=== PATIENT | male | born 1945 | race Caucasian/White ===

== ENCOUNTER 2019-04-03 09:29 | Inpatient (IN) | payer OTHER, MEDICAID ==
[~2019-04-03] VITALS: Ht 175.3 cm; Wt 90.0 kg
[2019-04-03 11:06] LABS: Alanine Aminotransferase 13 U/L (16-61); Albumin 3.3 g/dL (3.4-5.0); Anion Gap 8 (5-15); Blood Alcohol < 3.0 mg/dL (0-5); Blood Urea Nitrogen 27 mg/dL (7-18); Calcium 8.6 mg/dL (8.5-10.1); Carbon Dioxide 21 mmol/L (21-32); Chloride 111 mmol/L (98-107); Glucose 118 mg/dL (74-106); Magnesium 1.7 mg/dL (1.6-2.6); Potassium 4.1 mmol/L (3.5-5.1); Sodium 140 mmol/L (136-145)
[2019-04-03 11:08] LABS: Lactic Acid w/Reflex 4.1 mmol/L (0.4-2.0)
[2019-04-03 11:11] LABS: Alkaline Phosphatase 59 U/L (45-117); Aspartate Aminotransferase 16 U/L (15-37); BUN/Creatinine Ratio 13.9; Bilirubin, Total 2.1 mg/dL (0.2-1.0); GFR African American 44 mL/min; GFR Non-African American 36 mL/min
[2019-04-03 11:13] LABS: Hemoglobin 9.9 g/dL (13.5-17.5); Mean Corpuscular Hgb Conc. 35.6 g/dL (32.0-36.0); Platelet Count (auto) 95 10^3/uL (140-450); White Blood Cell 5.2 10^3/uL (4.4-10.8)
[2019-04-03 11:15] LABS: Hematocrit 27.7 % (41.0-53.0); Mean Corpuscular Hemoglobin 35.2 pg (28.0-32.0); Red Cell Distribution Width 19.4 % (11.8-14.3)
[2019-04-03 11:25] LABS: Basophils % (manual) 0 (0.0-2.0); Blast Cells 0; Eosinophils % (manual) 0 (0-7); Metamyelocytes % 0; Myelocytes % 0; Promyelocytes % 0; Reactive Lymphocytes 0
[2019-04-03 11:48] LABS: INR 1.07 (0.9-1.15); Partial Thromboplastin Time 24.8 sec (23.64-32.05)
[2019-04-03 12:27] LABS: Band Neutrophils % (manual) 15; Lymphocytes % (manual) 3 (10.0-50.0); Monocytes % (manual) 2 (0-12)
[2019-04-03] MEDS ORDERED: DEXTROSE (50%) 50ML SYRG IV PRN (12:45)
[2019-04-03] MEDS ORDERED: NITROGLYCERIN 0.4 MG SL TAB SL PRN (12:45)
[2019-04-03] MEDS ORDERED: MORPHINE SULF INJ 2 MG/ML SYRINGE 1ML IV PRN (12:45)
[2019-04-03] MEDS ORDERED: SODIUM CHLORIDE 0.9% 2,000 ML IV ONE (12:45)
[2019-04-03] MEDS ORDERED: LEVOFLOXACIN 500MG 100 ML IV ONE (12:45)
[2019-04-03 13:01] LABS: Alcohol, Urine < 3.0 mg/dL (0-5); Amphetamine Screen, Urine NEGATIVE (NEGATIVE); Barbiturate Scree,Urine NEGATIVE (NEGATIVE); Benzodiazephine Screen, Urine NEGATIVE (NEGATIVE); Cannabinoid Screen, Urine POSITIVE (NEGATIVE); Cocaine Screen, Urine NEGATIVE (NEGATIVE); Opiate Scree,Urine POSITIVE (NEGATIVE); Phencyclidine Screen, Urine NEGATIVE (NEGATIVE)
[2019-04-03 13:05] LABS: Urine Bacteria NONE SEEN /hpf (None Seen); Urine Blood 3+ /uL (Negative); Urine Specific Gravity 1.015 (1.001-1.035); Urine WBC 9 /hpf (0 - 3)
[2019-04-03] MEDS ORDERED: ACETAMINOPHEN 325 MG TAB PO ONE (13:15)
[2019-04-03] MEDS ORDERED: NALOXONE HCL 0.4 MG/ML VIAL IV PRN (13:15)
[2019-04-03] MEDS ORDERED: ACETAMINOPHEN 500 MG TAB PO ONE (13:30)
[2019-04-03] MEDS: InsuLIN REG 1unit/0.01ml Soln (100units/ml) SC SCH ×2 (17:00→22:00)
[2019-04-03] MEDS: ACCU-CHEK COMFORT CURVE STRIP VI SCH ×2 (17:08→22:16)
[2019-04-04] MEDS ORDERED: cefTRIAXone 1GM/50ML D5W 50 ML IV ONE
[2019-04-04] MEDS ORDERED: VANCOMYCIN 1GM/250ML 250 ML IV ONE (01:00)
[2019-04-04] MEDS ORDERED: HYDROcodone-ACET 5/325MG TAB PO PRN (02:00)
[2019-04-04 06:30] LABS: Basophils # (auto) 0 uL; Basophils % (auto) 0.1 % (0.0-2.0); Eosinophils # (auto) 0 uL; Eosinophils % (auto) 0.2 % (0.0-7.0); Hematocrit 22.2 % (41.0-53.0); Hemoglobin 7.6 g/dL (13.5-17.5); Lymphocytes # (auto) 0.3 uL; Lymphocytes % (auto) 5.2 % (10.0-50.0); Mean Corpuscular Hemoglobin 34.7 pg (28.0-32.0); Mean Corpuscular Hgb Conc. 34.2 g/dL (32.0-36.0); Mean Corpuscular Volume 101.4 fL (80.0-100.0); Monocytes # (auto) 0.4 uL; Monocytes % (auto) 6.7 % (0.0-12.0); Neutrophils # (auto) 5.9 uL; Neutrophils % (auto) 87.8 % (37.0-80.0); Platelet Count (auto) 70 10^3/uL (140-450); Red Blood Cells 2.19 10^6/uL (4.5-5.90); Red Cell Distribution Width 19.8 % (11.8-14.3); White Blood Cell 6.7 10^3/uL (4.4-10.8)
[2019-04-04 07:00] LABS: Albumin 2.5 g/dL (3.4-5.0); Calcium 7.7 mg/dL (8.5-10.1); Potassium 4.5 mmol/L (3.5-5.1)
[2019-04-04] MEDS: InsuLIN REG 1unit/0.01ml Soln (100units/ml) SC SCH ×4 (07:00→21:22)
[2019-04-04 07:03] LABS: BUN/Creatinine Ratio 15.3
[2019-04-04] MEDS: ACCU-CHEK COMFORT CURVE STRIP VI SCH ×4 (07:05→21:21)
[2019-04-04 07:12] LABS: Bilirubin, Total 1.1 mg/dL (0.2-1.0); Total Protein 6.3 g/dL (6.4-8.2)
[2019-04-04] MEDS ORDERED: LEVOFLOXACIN 250MG 50 ML IV SCH (10:00)
--- NOTE | 2019-04-04 11:30 | NUR ---
CAME ON WC FROM ER, ALERT AND ORIENTED X4, NOT IN DISTRESS, CLEAR LS IN BILATERAL UPPER AND LOWER LOBES, RR=20 IAU=030%, SR R=80 ON TELE MONITOR, DENIED CHEST PAIN AND DISCOMFORT, ABDOMEN SOFT WITH ACTIVE BS, LAST BM=04/03/19 REPORTED, SCALES ACTH IN PLACE AND PATENT, DRAINING CLEAR YELLOW URINE, SKIN INTACT WARM TO TOUCH,RADIAL AND PEDAL PULSES PALPABLE, CAP REFILL <3 SECONDS, VS T=99.0 RR=20 UUI=078% P=81 YY=541/70, RESTING ON BED, HEAD OF BED ELEVATED, BED ON LOW POSITION, RAILS UP X2, CALL LIGHT ON REACH, FAMILY AT BEDSIDE, WILL CONTINUE MONITORING.
[2019-04-04 11:41] VITALS: BP 127/70
[2019-04-04] MEDS ORDERED: SODIUM CHLORIDE 0.9% 1,000 ML IV SCH (11:45)
[2019-04-04 12:00] VITALS: BP 127/70
--- NOTE | 2019-04-04 13:11 | NUR ---
D/C SCALES CATH ORDERED, TOLERATED WELL, LUNCH TRAY WAS PROVIDED AND TOLERATED 100%, PENDING RENAL CONSULT, NOT IN DISTRESS, RESTING ON BED, WILL CONTINUE MONITORING.
[2019-04-04] MEDS: SODIUM BICARBONATE 50ML VIAL 50 ML in D5W/SOD CHL 0.45% 1,000 ML IV SCH ×2 (13:15→21:46)
[2019-04-04 13:40] LABS: Phosphorus 2.8 mg/dL (2.5-4.90); Uric Acid 6.8 mg/dL (3.5-7.2)
[2019-04-04 15:02] LABS: Basophils # (auto) 0 uL; Eosinophils # (auto) 0 uL; Eosinophils % (auto) 0.2 % (0.0-7.0); Lymphocytes # (auto) 0.2 uL; Monocytes # (auto) 0.2 uL; Neutrophils # (auto) 4.5 uL; White Blood Cell 4.9 10^3/uL (4.4-10.8)
[2019-04-04 15:04] LABS: Basophils % (auto) 0.1 % (0.0-2.0); Hematocrit 24.7 % (41.0-53.0); Hemoglobin 8.4 g/dL (13.5-17.5); Lymphocytes % (auto) 3.7 % (10.0-50.0); Mean Corpuscular Hemoglobin 34.4 pg (28.0-32.0); Mean Corpuscular Volume 101.2 fL (80.0-100.0); Monocytes % (auto) 4.2 % (0.0-12.0); Neutrophils % (auto) 91.8 % (37.0-80.0); Platelet Count (auto) 70 10^3/uL (140-450); Red Blood Cells 2.44 10^6/uL (4.5-5.90)
[2019-04-04] MEDS: LEVOFLOXACIN 500MG 100 ML IV SCH (15:08)
[2019-04-04 15:23] LABS: % Iron Saturation 7.9 % (20-55)
[2019-04-04 16:53] VITALS: BP 106/61
--- NOTE | 2019-04-04 18:27 | NUR ---
PENDING STOOL SAMPLE, VOIDED CLOUDY YELLOW URINE ON URINAL X1, NO BM NOTED TODAY, SAMPLE KIT AND EDUCATION PROVIDED, VERBALIZED UNDERSTANDING, NOT IN DISTRESS, DENIED PAIN, TOLERATED 1005 DINNER TRAY, SITTER IN THE ROOM.
--- NOTE | 2019-04-04 19:07 | NUR ---
REPORT WAS GIVEN TO THE NASCAR RACER RN.
--- NOTE | 2019-04-04 19:30 | NUR ---
Opening Shift Note Assumed care of patient, awake and alert. No S/S of distress/SOB or pain. Instructed on POC and to call for assist PRN, will continue to monitor for changes Q1hr and PRN.
--- NOTE | 2019-04-04 20:38 | NUR ---
PATIENT HAD A TEMP OF 101.4. INITIATED COOLING MEASURES. NORCO WAS ALSO GIVEN FOR PAIN - PROSTATE. VOID IN URINAL IS STILL PINK TINGED WITH NO CLOTS. WILL CONTINUE TO MONITOR.
--- NOTE | 2019-04-04 21:58 | NUR ---
TEMP RECHECK WAS 99.2. PATIENT ALSO COMPLAINING OF ACID REFLUX. PAGED DR. BRICENO. RECEIVED ORDER TO CONTINUE HOME MEDICATION. PLACED ORDER FOR PANTOPRAZOLE DAILY. PRILOSEC UNAVAILABLE.
[2019-04-04 22:00] VITALS: BP 121/64
[2019-04-04] MEDS ORDERED: PANTOPRAZOLE 40 MG TAB PO ONE (22:00)
[2019-04-05] MEDS ORDERED: cefTRIAXone 1GM/50ML D5W 50 ML IV SCH
[2019-04-05 04:37] VITALS: BP 117/56
--- NOTE | 2019-04-05 05:04 | NUR ---
PT TEMP IN THE AM WAS 98.6. NO C/O CHILLS OR TEMP ANYMORE.
[2019-04-05] MEDS: InsuLIN REG 1unit/0.01ml Soln (100units/ml) SC SCH ×4 (06:14→22:00)
[2019-04-05] MEDS: ACCU-CHEK COMFORT CURVE STRIP VI SCH ×4 (06:14→22:04)
[2019-04-05 06:34] LABS: Basophils # (auto) 0 uL; Eosinophils # (auto) 0 uL; Eosinophils % (auto) 0.8 % (0.0-7.0); Lymphocytes # (auto) 0.4 uL; Monocytes # (auto) 0.3 uL; Neutrophils # (auto) 2.4 uL
[2019-04-05 06:35] LABS: Potassium 3.9 mmol/L (3.5-5.1)
[2019-04-05 06:36] LABS: Basophils % (auto) 0.3 % (0.0-2.0); Hematocrit 20.9 % (41.0-53.0); Hemoglobin 7.4 g/dL (13.5-17.5); Lymphocytes % (auto) 11.7 % (10.0-50.0); Mean Corpuscular Hemoglobin 34.7 pg (28.0-32.0); Mean Corpuscular Hgb Conc. 35.6 g/dL (32.0-36.0); Mean Corpuscular Volume 97.3 fL (80.0-100.0); Monocytes % (auto) 9.8 % (0.0-12.0); Neutrophils % (auto) 77.4 % (37.0-80.0); Red Blood Cells 2.15 10^6/uL (4.5-5.90); Red Cell Distribution Width 19.4 % (11.8-14.3); White Blood Cell 3.1 10^3/uL (4.4-10.8)
[2019-04-05 06:38] LABS: BUN/Creatinine Ratio 14.1; Calcium 7.7 mg/dL (8.5-10.1)
[2019-04-05] MEDS: SODIUM BICARBONATE 50ML VIAL 50 ML in D5W/SOD CHL 0.45% 1,000 ML IV SCH ×2 (06:47→15:30)
[2019-04-05 07:53] LABS: Platelet Count (auto) 67 10^3/uL (140-450)
[2019-04-05 08:03] LABS: Platelet Count (auto) 67 10^3/uL (140-450)
--- NOTE | 2019-04-05 08:55 | NUR ---
Per STEVIE patient is in Bigeminy. EKG obtained. Patient is asymptomatic and denies s/s of distress, CP, or SOB. Dr. Ray paged.
[2019-04-05] MEDS: LEVOFLOXACIN 500MG 100 ML IV SCH (10:05)
[2019-04-05] MEDS: PANTOPRAZOLE 40 MG TAB PO SCH (10:05)
--- NOTE | 2019-04-05 11:09 | NUR ---
Per STEVIE patient is in Bigeminy. EKG obtained. Patient is asymptomatic and denies s/s of distress, CP, or SOB. Dr. Ray paged.
--- NOTE | 2019-04-05 11:12 | NUR ---
Dr. Rodriguez paged regarding patient's heart rhythm. Awaiting call back.
[2019-04-05 13:00] VITALS: BP 116/71
--- NOTE | 2019-04-05 16:51 | NUR ---
Dr. Ray paged, awaiting call back.
[2019-04-05 17:00] VITALS: BP 120/73
--- NOTE | 2019-04-05 17:09 | NUR ---
Dr. Ray returned page. aware patient has had multiple runs of bigeminy and sinus rhythm with frequent PVCs. Patient is asymptomatic and denies s/s of distress, SOB, or CP. BP 100s-110s. MD gave additional orders per emar.
[2019-04-05] MEDS: MAGNESIUM SULFATE 1GM/100ML 100 ML IV SCH ×2 (17:47→18:56)
--- NOTE | 2019-04-05 19:00 | NUR ---
Opening Shift Note Assumed care of patient, awake and alert. No S/S of distress/SOB or pain. Instructed on POC and to call for assist PRN, will continue to monitor for changes Q1hr and PRN. Side rails up x2. Bed locked in lowest position. Call light within reach. Sitter at bedside.
--- NOTE | 2019-04-05 19:26 | NUR ---
Change of shift given to shift superintendent RN. No distress noted.
--- NOTE | 2019-04-05 19:27 | NUR ---
caustic cresylate shift superintendent RN aware to show EKGs to Dr. Rodriguez during rounding.
[2019-04-05] MEDS ORDERED: SODIUM FERR GLUC 62.5MG/5ML 125 MG in SODIUM CHL 0.9% 100 ML IV ONE (21:00)
[2019-04-05 22:00] VITALS: BP 111/57
--- NOTE | 2019-04-05 22:50 | NUR ---
Called/paged Dr. Rashaad Rodriguez called re: ferlicit unavailable. Waiting for call back. Continue care.
--- NOTE | 2019-04-05 22:56 | NUR ---
Dr. Rodriguez at bedside. Addendum: 04/05/19 at 2257 by ROLANDA JACOBS RN RN wrong time Dr. Rodriguez at bedside at 2100
--- NOTE | 2019-04-05 22:57 | NUR ---
returned call scalloper Dr. Recinos returned call , updated on patient status and reason for call, orders received. Give morning ferrous sulfate 325mg now. Continue care.
[2019-04-05] MEDS ORDERED: FERROUS SULFATE 325 MG TAB PO ONE (23:05)
[2019-04-05] MEDS: FERROUS SULFATE 325 MG TAB PO SCH (23:06)
[2019-04-06] MEDS: SODIUM BICARBONATE 50ML VIAL 50 ML in D5W/SOD CHL 0.45% 1,000 ML IV SCH ×3 (00:27→16:34)
[2019-04-06] MEDS: InsuLIN REG 1unit/0.01ml Soln (100units/ml) SC SCH ×4 (06:33→21:00)
[2019-04-06] MEDS: ACCU-CHEK COMFORT CURVE STRIP VI SCH ×4 (06:33→21:01)
[2019-04-06 06:41] LABS: Hemoglobin 7.2 g/dL (13.5-17.5); White Blood Cell 2.4 10^3/uL (4.4-10.8)
[2019-04-06 06:44] LABS: Hematocrit 20.3 % (41.0-53.0); Mean Corpuscular Hemoglobin 34.2 pg (28.0-32.0); Mean Corpuscular Hgb Conc. 35.5 g/dL (32.0-36.0); Mean Corpuscular Volume 96.3 fL (80.0-100.0); Platelet Count (auto) 66 10^3/uL (140-450); Red Blood Cells 2.11 10^6/uL (4.5-5.90); Red Cell Distribution Width 18.8 % (11.8-14.3)
[2019-04-06 07:08] LABS: BUN/Creatinine Ratio 11.3; Potassium 3.9 mmol/L (3.5-5.1)
[2019-04-06 08:00] VITALS: BP 103/54
[2019-04-06 09:00] VITALS: BP 116/66
[2019-04-06 09:48] LABS: Basophils % (manual) 0 (0.0-2.0); Blast Cells 0; Eosinophils % (manual) 0 (0-7); Metamyelocytes % 0; Myelocytes % 0; Promyelocytes % 0; Reactive Lymphocytes 0
[2019-04-06 09:49] LABS: Band Neutrophils % (manual) 13; Lymphocytes % (manual) 23 (10.0-50.0); Monocytes % (manual) 15 (0-12)
[2019-04-06] MEDS: LEVOFLOXACIN 500MG 100 ML IV SCH (10:41)
[2019-04-06] MEDS: PANTOPRAZOLE 40 MG TAB PO SCH (10:42)
[2019-04-06 13:30] VITALS: BP 119/65
[2019-04-06 17:00] VITALS: BP 108/67
[2019-04-06 17:07] VITALS: BP 108/67
--- NOTE | 2019-04-06 17:58 | NUR ---
CALLED DR. LEHMAN PER DR. ELIZALDE REGARDING THE RESULTS OF CT ABD/PELVIS W/O CONTRAST. NO ONE ANSWER THE PHONE. ONE MESSAGE WAS LEFT. AWAITING FOR RESPONSE.
[2019-04-06] MEDS: FERROUS SULFATE 325 MG TAB PO SCH (18:19)
[2019-04-06] MEDS: HYDROcodone-ACET 5/325MG TAB PO PRN (19:35)
[2019-04-06 20:21] LABS: Basophils # (auto) 0 uL; Eosinophils # (auto) 0.1 uL; Hematocrit 20.2 % (41.0-53.0); Hemoglobin 7.1 g/dL (13.5-17.5); Lymphocytes # (auto) 0.5 uL; Mean Corpuscular Hemoglobin 33.8 pg (28.0-32.0); Monocytes # (auto) 0.3 uL; Neutrophils # (auto) 1.5 uL; Nucleated Red Blood Cells % 0.1 %
[2019-04-06 20:23] LABS: Basophils % (auto) 0.8 % (0.0-2.0); Eosinophils % (auto) 3.6 % (0.0-7.0); Lymphocytes % (auto) 21.2 % (10.0-50.0); Mean Corpuscular Hgb Conc. 35.1 g/dL (32.0-36.0); Mean Corpuscular Volume 96.3 fL (80.0-100.0); Monocytes % (auto) 12.5 % (0.0-12.0); Neutrophils % (auto) 61.9 % (37.0-80.0); Platelet Count (auto) 70 10^3/uL (140-450); Red Cell Distribution Width 19.3 % (11.8-14.3); White Blood Cell 2.5 10^3/uL (4.4-10.8)
--- NOTE | 2019-04-06 21:25 | NUR ---
Dr. Herrera at bedside.
[2019-04-06 22:00] VITALS: BP 119/61
--- NOTE | 2019-04-06 23:19 | NUR ---
Dr. King at bedside Ordered to scan bladder and to insert villeda if urine volume is over 150.
--- NOTE | 2019-04-06 23:20 | NUR ---
Bladder scanned with total volume of 104ml urine.
--- NOTE | 2019-04-06 23:23 | NUR ---
Dr. King ordered to cancel MRI order.
[2019-04-07] MEDS: SODIUM BICARBONATE 50ML VIAL 50 ML in D5W/SOD CHL 0.45% 1,000 ML IV SCH ×3 (02:30→20:00)
[2019-04-07 05:00] VITALS: BP 120/63
[2019-04-07 06:00] LABS: Basophils # (auto) 0 uL; Basophils % (auto) 0.7 % (0.0-2.0); Eosinophils # (auto) 0.1 uL; Hemoglobin 7.3 g/dL (13.5-17.5); Lymphocytes # (auto) 0.8 uL; Monocytes # (auto) 0.3 uL; Neutrophils # (auto) 1.9 uL; Red Cell Distribution Width 19.3 % (11.8-14.3)
[2019-04-07 06:02] LABS: Eosinophils % (auto) 3.9 % (0.0-7.0); Hematocrit 21.1 % (41.0-53.0); Lymphocytes % (auto) 24.5 % (10.0-50.0); Mean Corpuscular Hemoglobin 33.4 pg (28.0-32.0); Mean Corpuscular Hgb Conc. 34.9 g/dL (32.0-36.0); Mean Corpuscular Volume 95.7 fL (80.0-100.0); Monocytes % (auto) 9.3 % (0.0-12.0); Neutrophils % (auto) 61.6 % (37.0-80.0); Platelet Count (auto) 74 10^3/uL (140-450); White Blood Cell 3.1 10^3/uL (4.4-10.8)
[2019-04-07 06:13] LABS: Calcium 8.1 mg/dL (8.5-10.1); Potassium 3.7 mmol/L (3.5-5.1)
[2019-04-07] MEDS: HYDROcodone-ACET 5/325MG TAB PO PRN ×3 (06:45→21:56)
[2019-04-07] MEDS: InsuLIN REG 1unit/0.01ml Soln (100units/ml) SC SCH ×4 (06:47→21:56)
[2019-04-07] MEDS: ACCU-CHEK COMFORT CURVE STRIP VI SCH ×4 (06:47→21:56)
--- NOTE | 2019-04-07 07:34 | NUR ---
Endorsed care to day shift RN. Patient in bed awake with no signs of distress. Sitter at bedside for safety.
--- NOTE | 2019-04-07 08:00 | NUR ---
Opening Shift Note Assumed care of patient, awake, alert and oriented X4. No S/S of distress/SOB or pain. Tele# 7, sinus rhythm @ 68 bpm. IV to left wrist, 22 gauge, patent and infusing D5W 0.45% NS @ 120 ml/hr. Instructed on POC and to call for assist PRN, sitter remains at bedside for patient safety, will continue to monitor for changes Q1hr and PRN.
--- NOTE | 2019-04-07 08:20 | NUR ---
Message left with Dr Javier Rose's exchange to notify of communication order from Dr Rajesh King, Urologist.
--- NOTE | 2019-04-07 08:26 | NUR ---
Dr Herrera returned call, informed of Dr Rajesh King's commination order, verbalized understanding but verbalized he still wants the MRI of the abdomen due to renal ultrasound results. New order placed.
[2019-04-07] MEDS: LEVOFLOXACIN 500MG 100 ML IV SCH (11:24)
[2019-04-07] MEDS: FERROUS SULFATE 325 MG TAB PO SCH ×2 (11:24→17:30)
[2019-04-07] MEDS: PANTOPRAZOLE 40 MG TAB PO SCH (11:24)
[2019-04-07] MEDS: SODIUM FERR GLUC 62.5MG/5ML 125 MG in SODIUM CHL 0.9% 100 ML IV SCH (13:21)
--- NOTE | 2019-04-07 18:45 | NUR ---
[facility] Tele Psych consult called in, awaiting return call, monitor set up in patient's room.
--- NOTE | 2019-04-07 19:31 | NUR ---
Opening Shift Note Assumed care of patient, awake and alert. No S/S of distress/SOB or pain. Instructed on POC and to call for assist PRN, will continue to monitor for changes Q1hr and PRN. Side rails up x2. Bed locked in lowest position. Call light within reach. Sitter at bedside for safety.
--- NOTE | 2019-04-07 19:32 | NUR ---
Care endorsed to Robert RN, night nurse.
--- NOTE | 2019-04-07 19:49 | NUR ---
DANY ogden called Spoke to Kerwin regarding tele psych consult. Patient will be seen by a doctor tomorrow morning 04/08/19 between 7am-12pm
[2019-04-07 22:00] VITALS: BP 127/69
[2019-04-08 05:00] VITALS: BP 128/64
[2019-04-08 06:17] LABS: Potassium 3.6 mmol/L (3.5-5.1)
[2019-04-08 06:31] LABS: Albumin 2.5 g/dL (3.4-5.0); Bilirubin, Total 1.4 mg/dL (0.2-1.0); Calcium 8.1 mg/dL (8.5-10.1); Total Protein 6.4 g/dL (6.4-8.2)
[2019-04-08] MEDS: InsuLIN REG 1unit/0.01ml Soln (100units/ml) SC SCH ×4 (07:00→22:00)
[2019-04-08] MEDS: ACCU-CHEK COMFORT CURVE STRIP VI SCH ×4 (07:01→22:36)
[2019-04-08] MEDS: SODIUM BICARBONATE 50ML VIAL 50 ML in D5W/SOD CHL 0.45% 1,000 ML IV SCH (07:01)
--- NOTE | 2019-04-08 08:00 | NUR ---
Opening Shift Note Assumed care of patient, awake, alert and oriented X4. No S/S of distress/SOB or pain. Tele# 7, sinus rhythm @ 62 bpm. IV to left wrist, 22 gauge, patent and infusing D5W 0.45% NS with NaHO3 @ 120 ml/hr. Instructed on POC and to call for assist PRN, sitter remains at bedside for patient safety, will continue to monitor for changes Q1hr and PRN.
[2019-04-08] MEDS: FERROUS SULFATE 325 MG TAB PO SCH ×2 (08:13→17:47)
[2019-04-08 09:00] VITALS: BP 125/78
[2019-04-08] MEDS: LEVOFLOXACIN 500MG 100 ML IV SCH (11:02)
[2019-04-08] MEDS: PANTOPRAZOLE 40 MG TAB PO SCH (11:02)
--- NOTE | 2019-04-08 11:55 | NUR ---
Dr. Waters with Tele Psych, [facility], conducting interview via tele monitor at bedside. Sitter remains at bedside for patient safety.
[2019-04-08] MEDS: SODIUM FERR GLUC 62.5MG/5ML 125 MG in SODIUM CHL 0.9% 100 ML IV SCH (12:40)
[2019-04-08 13:00] VITALS: BP 134/79
--- NOTE | 2019-04-08 13:00 | NUR ---
Call received from Dr. Waters with Tele Psych [facility]. Verbalized patient does not meet criteria for 5150 hold and to continue home medication Paxil as previously ordered. Informed Dr Rashaad Rodriguez, verbalized understanding. Sitter remains at bedside for patient safety.
[2019-04-08] MEDS ORDERED: GADOPENTETATE DIMEGLUMINE (10MMOL/20 ML) VIAL IV ONE (14:17)
--- NOTE | 2019-04-08 14:26 | NUR ---
MRI Patient taken for MRI via wheelchair, no distress noted upon departure.
--- NOTE | 2019-04-08 15:34 | NUR ---
Returned from MRI via wheelchair, no distress noted upon return.
--- NOTE | 2019-04-08 15:46 | NUR ---
Nutrition Assessment Notes please see attached link for complete assessment Est. Needs BW 90 [id number] kcal (23-25 kcal/kgBW), 90-99 gms pro (1.0-1.1 gms/kgBW). Will continue to monitor pertinent labs and reassess nutrient need prn Addendum: 04/08/19 at [address] Amended: Links added.
[2019-04-08] MEDS: HYDROcodone-ACET 5/325MG TAB PO PRN ×2 (15:48→22:39)
[2019-04-08 17:00] VITALS: BP 115/69
--- NOTE | 2019-04-08 17:51 | NUR ---
MRI RESULTS Call placed to Dr Moreno, message left with Mohit with answering service, awaiting return call to inform MRI results per Dr Rashaad Rodriguez. Awaiting return call.
--- NOTE | 2019-04-08 17:53 | NUR ---
Dr Moreno returned call, informed of MRI results, verbalized understanding and informed patient is cleared to be discharged form Oncology standpoint. Will notify Dr Rashaad Rodriguez.
--- NOTE | 2019-04-08 18:50 | NUR ---
Call placed to Dr Rashaad Rodriguez, awaiting return call to notify of MRI results and clearance from Dr Galan, Oncology.
--- NOTE | 2019-04-08 19:13 | NUR ---
Care endorsed to GISEL Hernandez, night nurse.
--- NOTE | 2019-04-08 19:55 | NUR ---
Received call from MD Rashaad Rodriguez updated on patient status and results of MRI. Instructed primary RN to call Karin Walter NP to notify of MRI results and need clearance for discharge for urology standpoint. Will carry out and continue care.
--- NOTE | 2019-04-08 20:00 | NUR ---
Called Karin Walter, [employer] left voicemail. awaiting call back. will continue care.
--- NOTE | 2019-04-08 20:05 | NUR ---
Opening Shift Note Assumed care of patient, awake and alert, oriented x 4, clear speech, follows direction. On room air with even and unlabored respirations, no S/S of distress or SOB. Patient using urinal independently. Patient is able to turn independently in bed. IV to Left wrist infiltrated, IV DC'd with clean sterile technique, catheter fully intact. Pressure dressing applied to site. Patient tolerated well. Applied warm compress and elevated extremity. Bed low locked position with side rails up x 2 and call light within reach. Instructed on POC and to call for assist PRN, will continue to monitor for changes Q1hr and PRN.
[2019-04-08 20:58] VITALS: BP 147/70
[2019-04-08] MEDS ORDERED: PAR20T PO (23:00)
--- NOTE | 2019-04-08 23:00 | NUR ---
MD Rashaad Rodriguez at bedside
[2019-04-08] MEDS ORDERED: FER325T PO (23:20)
[2019-04-08] MEDS ORDERED: LEVO500T21 PO (23:20)
[2019-04-09 04:32] VITALS: BP 129/76
[2019-04-09] MEDS: HYDROcodone-ACET 5/325MG TAB PO PRN ×2 (05:16→09:37)
--- NOTE | 2019-04-09 06:15 | NUR ---
Called Karin Walter, BAKER left voicemail. awaiting call back. will continue care.
--- NOTE | 2019-04-09 06:45 | NUR ---
Received call back from TONIA Walter Informed TONIA Walter of MRI results and Hgb level, verbalized understanding. Instructed primary RN patient is cleared and stable to be discharged from urology standpoint.
[2019-04-09] MEDS: InsuLIN REG 1unit/0.01ml Soln (100units/ml) SC SCH ×2 (07:00→11:30)
[2019-04-09] MEDS: ACCU-CHEK COMFORT CURVE STRIP VI SCH ×2 (07:01→11:30)
--- NOTE | 2019-04-09 07:05 | NUR ---
Closing Note patient is awake, lying in bed with even and unlabored respirations, no s/s of distress. Bed low locked position with side rails up x 2 and call light within reach. Instructed patient on POC for discharge plan. Endorsed care to day shift RN.
--- NOTE | 2019-04-09 08:00 | NUR ---
Opening Shift Note: Assumed care of patient, patient lying awake and alert. No S/S of distress/SOB or pain. Bed in lowest locked position, side rails up x2, call light within reach. Instructed on POC and to call for assist PRN, will continue to monitor for changes Q1hr and PRN.
[2019-04-09] MEDS: FERROUS SULFATE 325 MG TAB PO SCH (08:10)
[2019-04-09 08:30] VITALS: BP 122/62
[2019-04-09] MEDS: LEVOFLOXACIN 500MG 100 ML IV SCH (09:33)
[2019-04-09] MEDS: PANTOPRAZOLE 40 MG TAB PO SCH (09:38)
[2019-04-09] MEDS: SODIUM FERR GLUC 62.5MG/5ML 125 MG in SODIUM CHL 0.9% 100 ML IV SCH (12:00)
[2019-04-09 13:30] VITALS: BP 139/71
--- NOTE | 2019-04-09 15:30 | NUR ---
Discharge instructions given as ordered. Encourage to follow up with PMD as instructed. All questions and concerns addressed. Patient verbalized understanding. Medication reconciliation form completed and copy given to patient. Telemetry unit returned to ICU. Patient taken to vehicle via wheelchair with all personal belongings, accompanied by staff and family member. No distress noted at time of departure.
== END 2019-04-09 15:30 | disposition home or self-care (01) | DRG 871 ==
LOC: ER 09:40 → OVERFLOW 09:41 → TELE-WESTW 04-04 10:39
PROVIDERS: ADMIT Internal Medicine; ATTEND Internal Medicine
DX: A41.50 Gram-negative sepsis, unspecified (principal); G92 Toxic encephalopathy; I21.4 Non-ST elevation (NSTEMI) myocardial infarction; N17.0 Acute kidney failure with tubular necrosis; E44.1 Mild protein-calorie malnutrition; N39.0 Urinary tract infection, site not specified; D61.818 Other pancytopenia; E87.2 Acidosis; D63.1 Anemia in chronic kidney disease; N18.3 Chronic kidney disease, stage 3 (moderate); T40.601A Poisoning by unspecified narcotics, accidental (unintentional), initial encounter; D69.6 Thrombocytopenia, unspecified; E11.21 Type 2 diabetes mellitus with diabetic nephropathy; D50.9 Iron deficiency anemia, unspecified; B96.20 Unspecified Escherichia coli [E. coli] as the cause of diseases classified elsewhere; E11.22 Type 2 diabetes mellitus with diabetic chronic kidney disease; F17.200 Nicotine dependence, unspecified, uncomplicated; F32.9 Major depressive disorder, single episode, unspecified; F41.9 Anxiety disorder, unspecified; G89.4 Chronic pain syndrome; I12.9 Hypertensive chronic kidney disease with stage 1 through stage 4 chronic kidney disease, or unspecified chronic kidney disease; K57.30 Diverticulosis of large intestine without perforation or abscess without bleeding; K76.89 Other specified diseases of liver; N20.0 Calculus of kidney; N32.9 Bladder disorder, unspecified; N40.0 Benign prostatic hyperplasia without lower urinary tract symptoms; Y92.89 Other specified places as the place of occurrence of the external cause; Z68.29 Body mass index [BMI] 29.0-29.9, adult
CPT/HCPCS: 36415; 51702; 70450; 71045; 74176; 74183; 76775; 80048; 80053; 80307; 80320; 81001; 82270; 82728; 82962; 83540; 83550; 83605; 83735; 84100; 84154; 84484; 84550; 85007; 85025; 85027; 85610; 85730; 86850; 86900; 86901; 87040; 87077; 87086; 87186; 93306; 96361; 96365; 96366; 97163; G0378; J0696; J1815; J1956

== ENCOUNTER 2024-05-06 15:30 | Inpatient (IN) | payer OTHER, MEDICAID ==
[~2024-05-06] VITALS: Ht 170.2 cm; Wt 61.1 kg
[~2024-05-06 15:30] MED LIST: FER325T PO; LEVO500T31 PO; PAR20T PO
[2024-05-06] MEDS: SODIUM CHLORIDE 0.9% 1,000 ML IV ONE (16:22)
[2024-05-06 16:40] LABS: Urine Bacteria None Seen /hpf (None Seen)
[2024-05-06 16:55] LABS: Basophils # (auto) 0 10 ^3/uL (0-0.2); Eosinophils # (auto) 0 10 ^3/uL (0-0.8); Lymphocytes # (auto) 0.5 10 ^3/uL (0.4-5.4); Lymphocytes % (auto) 5.7 % (10.0-50.0)
[2024-05-06 16:56] LABS: Urine Blood 3+ /uL (Negative); Urine Clarity Turbid (Clear); Urine Color Light-Brown (Yellow); Urine Hyaline Cast FEW /lpf (0 - 2); Urine Protein, UAD 1+ (Negative); Urine Specific Gravity 1.013 (1.001-1.035); Urine Urobilinogen Normal (Negative); Urine WBC 774 /hpf (0 - 3); Urine WBC Clumps PRESENT /hpf (None Seen); Urine pH 5.5 (5.0-9.0)
[2024-05-06 16:58] LABS: Basophils % (auto) 0.3 % (0.0-2.0); Eosinophils % (auto) 0.4 % (0.0-7.0); Hematocrit 20.2 % (41.0-53.0); Mean Corpuscular Hemoglobin 31.7 pg (28.0-32.0); Mean Corpuscular Hgb Conc. 33.6 g/dL (32.0-36.0); Mean Corpuscular Volume 94.3 fL (80.0-100.0); Monocytes # (auto) 0.5 10 ^3/uL (0-1.3); Monocytes % (auto) 6.5 % (0.0-12.0); Neutrophils % (auto) 87.1 % (37.0-80.0); Platelet Count (auto) 125 10^3/uL (140-450); Red Blood Cells 2.14 10^6/uL (4.5-5.90); Red Cell Distribution Width 16.4 % (11.8-14.3)
[2024-05-06 17:03] LABS: Alkaline Phosphatase 51 U/L (46-116); Anion Gap 17 (5-15); BUN/Creatinine Ratio 22.7 (10.0-20.0); Calcium 9.1 mg/dL (8.7-10.4); Carbon Dioxide 10 mmol/L (20-30); Chloride 115 mmol/L (98-107); Glucose 84 mg/dL (74-106); Sodium 142 mmol/L (136-145)
[2024-05-06 17:04] LABS: Albumin 3.6 g/dL (3.2-4.8); Aspartate Aminotransferase < 8 U/L (13-40); Bilirubin, Total 0.3 mg/dL (0.2-1.0); Total Protein 7.3 g/dL (5.7-8.2)
[2024-05-06 17:09] LABS: Hemoglobin 6.8 g/dL (13.5-17.5)
[2024-05-06 17:17] LABS: Alanine Aminotransferase < 9 U/L (7-40)
[2024-05-06 17:18] LABS: Potassium 5.8 mmol/L (3.5-5.1)
[2024-05-06 17:19] LABS: Blood Urea Nitrogen 132 mg/dL (9-23)
[2024-05-06] MEDS: PANTOPRAZOLE 80 MG in SODIUM CHL 0.9% 100 ML IV ONE (17:30)
[2024-05-06] MEDS: SODIUM ZIRCONIUM CYCL 10 GM PAK PO ONE (17:42)
[2024-05-06] MEDS: cefTRIAXone 1GM/50ML D5W 50 ML IV ONE (17:42)
[2024-05-06] MEDS: ALBUTEROL SULF 2.5 MG/0.5ML(0.5%) NEB SOLN NEB ONE (17:58)
[2024-05-06 18:00] VITALS: PULSE 111; RESP 23; O2SAT 100
[2024-05-06] MEDS: LIDOCAINE 2% JELLY 11ml (GLYDO) UR ONE (18:37)
[2024-05-06] MEDS: PANTOPRAZOLE 40mg/50ML NS AE 50 ML IV ONE (18:55)
[2024-05-06 19:35] VITALS: PULSE 111; RESP 23; O2SAT 100
[2024-05-06] MEDS ORDERED: ACETAMINOPHEN 325 MG TAB PO PRN (20:45)
[2024-05-06 20:54] LABS: Base Excess -18.5 mmol/L (-2.0-3.0)
[2024-05-06 21:16] LABS: Chloride 118 mmol/L (98-107); Potassium 5.1 mmol/L (3.5-5.1); Sodium 144 mmol/L (136-145)
[2024-05-06 21:17] LABS: Anion Gap 16.00001 (5-15); Calcium 9.1 mg/dL (8.7-10.4)
[2024-05-06 21:23] LABS: Glucose 100 mg/dL (74-106)
[2024-05-06 21:33] LABS: Blood Urea Nitrogen 109 mg/dL (9-23); Carbon Dioxide < 10 mmol/L (20-30)
[2024-05-06] MEDS: NOREPINEPHRINE 8 MG/250ML KIT 250 ML IV SCH ×2 (21:53→22:00)
[2024-05-06] MEDS: SODIUM BICARB 8.4% 50Meq/50ml SYR Vial IV ONE ×2 (21:56→22:04)
[2024-05-06] MEDS: NOREPINEPHRINE 8 MG/250ML KIT 250 ML IV ONE (21:56)
[2024-05-06] MEDS: SODIUM BICARB 50mEq/50ml Vial 50 ML in SOD CHL 0.45% 1,000 ML IV ONE (22:52)
[2024-05-06 23:15] VITALS: BP 93/38; PULSE 126; RESP 22; TEMP 97.8
[2024-05-06 23:31] VITALS: BP 89/47; PULSE 127; RESP 20; TEMP 98.1
[2024-05-07] VITALS (7 sets, daily range): BP systolic 110–158; BP diastolic 50–80; PULSE 104–115; RESP 16–21; TEMP 97.9–98.8; O2SAT 96–98
[2024-05-07] MEDS: levoFLOXacin 500 MG TAB PO ONE ×2 (00:18→10:10)
[2024-05-07 00:29] LABS: Hematocrit 17.7 % (41.0-53.0)
[2024-05-07 00:39] LABS: Hemoglobin 5.9 g/dL (13.5-17.5)
[2024-05-07 01:03] LABS: Chloride 116 mmol/L (98-107); Potassium 4.8 mmol/L (3.5-5.1); Sodium 146 mmol/L (136-145)
[2024-05-07 01:04] LABS: Anion Gap 19 (5-15); Carbon Dioxide 11 mmol/L (20-30)
[2024-05-07 01:09] LABS: BUN/Creatinine Ratio 23.1 (10.0-20.0); Glucose 97 mg/dL (74-106)
[2024-05-07 01:11] LABS: Blood Urea Nitrogen 122 mg/dL (9-23)
[2024-05-07] MEDS: SODIUM BICARB 8.4% 50Meq/50ml SYR Vial IV ONE (06:02)
[2024-05-07] MEDS: SODIUM BICARB 50mEq/50ml Vial 100 ML in SOD CHL 0.45% 1,000 ML IV SCH (06:13)
[2024-05-07 06:21] LABS: Basophils # (auto) 0 10 ^3/uL (0-0.2); Basophils % (auto) 0.2 % (0.0-2.0); Eosinophils # (auto) 0 10 ^3/uL (0-0.8); Eosinophils % (auto) 0.3 % (0.0-7.0); Hematocrit 26.8 % (41.0-53.0); Hemoglobin 9.1 g/dL (13.5-17.5); Lymphocytes # (auto) 0.4 10 ^3/uL (0.4-5.4); Lymphocytes % (auto) 7.4 % (10.0-50.0); Mean Corpuscular Hemoglobin 31.8 pg (28.0-32.0); Mean Corpuscular Volume 93.6 fL (80.0-100.0); Monocytes # (auto) 0.5 10 ^3/uL (0-1.3); Monocytes % (auto) 9.7 % (0.0-12.0); Neutrophils # (auto) 4.1 10 ^3/uL (1.6-8.6); Neutrophils % (auto) 82.4 % (37.0-80.0); Platelet Count (auto) 91 10^3/uL (140-450); Red Blood Cells 2.87 10^6/uL (4.5-5.90); Red Cell Distribution Width 14.9 % (11.8-14.3)
[2024-05-07 06:31] LABS: Anion Gap 14 (5-15); Carbon Dioxide 16 mmol/L (20-30); Chloride 117 mmol/L (98-107); Potassium 4.9 mmol/L (3.5-5.1); Sodium 147 mmol/L (136-145)
[2024-05-07 06:32] LABS: Calcium 9.5 mg/dL (8.7-10.4)
[2024-05-07 06:37] LABS: BUN/Creatinine Ratio 24.8 (10.0-20.0); Glucose 133 mg/dL (74-106); Triglycerides 97 mg/dL (< 150)
[2024-05-07 06:38] LABS: LDL Cholesterol 28 mg/dL (< 100)
[2024-05-07 06:39] LABS: Cholesterol 63 mg/dL (< 200); HDL Cholesterol 17 mg/dL (40-59)
[2024-05-07 06:46] LABS: Blood Urea Nitrogen 109 mg/dL (9-23)
[2024-05-07] MEDS: FERROUS SULFATE 325mg EC TAB PO SCH (08:26)
[2024-05-07] MEDS ORDERED: SODIUM BICARB 50mEq/50ml Vial 50 ML in SOD CHL 0.45% 1,000 ML IV SCH (10:00)
[2024-05-07] MEDS: cefTRIAXone 1GM/50ML D5W 50 ML IV SCH (10:10)
[2024-05-07] MEDS: PARoxetine 20 MG TAB PO SCH (10:10)
[2024-05-07 12:15] LABS: Hematocrit 27.4 % (41.0-53.0); Hemoglobin 8.7 g/dL (13.5-17.5)
[2024-05-07 13:06] LABS: Protein, Urine 41.4 mg/dL (0.0-11.9)
[2024-05-07 13:08] LABS: Creatinine, Urine 42.56 mg/dL (30.0-125.0); Urine Protein/Creatinine Ratio 0.97
[2024-05-07] MEDS: ONDANSETRON HCL 4 MG/2 ML VIAL IV PRN (13:25)
[2024-05-07] MEDS: AMIODARONE HCL 200 MG TAB PO SCH (14:32)
[2024-05-07] MEDS: HYDROcodone-ACET 5/325MG TAB PO PRN (14:33)
[2024-05-07 19:10] LABS: Hematocrit 25.1 % (41.0-53.0); Hemoglobin 8.7 g/dL (13.5-17.5)
[2024-05-08] VITALS (25 sets, daily range): BP systolic 137–167; BP diastolic 61–89; PULSE 66–100; RESP 10–21; TEMP 98.2–98.6; O2SAT 93–97
[2024-05-08] MEDS: SODIUM BICARB 8.4% 50Meq/50ml SYR Vial IV ONE (03:37)
[2024-05-08 05:19] LABS: Basophils # (auto) 0 10 ^3/uL (0-0.2); Basophils % (auto) 0.2 % (0.0-2.0); Eosinophils # (auto) 0.1 10 ^3/uL (0-0.8); Lymphocytes # (auto) 0.4 10 ^3/uL (0.4-5.4); Mean Corpuscular Hemoglobin 31.7 pg (28.0-32.0); Mean Corpuscular Hgb Conc. 34.6 g/dL (32.0-36.0); Mean Corpuscular Volume 91.5 fL (80.0-100.0); Monocytes # (auto) 0.3 10 ^3/uL (0-1.3); Monocytes % (auto) 8.3 % (0.0-12.0); Neutrophils # (auto) 2.5 10 ^3/uL (1.6-8.6); Neutrophils % (auto) 78.5 % (37.0-80.0); Platelet Count (auto) 83 10^3/uL (140-450); Red Blood Cells 2.84 10^6/uL (4.5-5.90); White Blood Cell 3.2 10^3/uL (4.4-10.8)
[2024-05-08 05:21] LABS: Chloride 114 mmol/L (98-107); Potassium 4.4 mmol/L (3.5-5.1); Sodium 148 mmol/L (136-145)
[2024-05-08 05:22] LABS: Anion Gap 7 (5-15); Calcium 9.3 mg/dL (8.7-10.4); Carbon Dioxide 27 mmol/L (20-30)
[2024-05-08 05:27] LABS: BUN/Creatinine Ratio 29.7 (10.0-20.0); Blood Urea Nitrogen 79 mg/dL (9-23); Glucose 152 mg/dL (74-106)
[2024-05-08] MEDS ORDERED: OMEP20TA PO (05:39)
[2024-05-08] MEDS ORDERED: HYDR-4798 PO (05:39)
[2024-05-08] MEDS ORDERED: LISI40TA16 PO (05:39)
[2024-05-08] MEDS ORDERED: GABA-339 PO (05:39)
[2024-05-08] MEDS: levoFLOXacin 250 MG TAB PO SCH (08:36)
[2024-05-08] MEDS ORDERED: cloNIDine HCL 0.1 MG TAB PO PRN (11:00)
[2024-05-08] MEDS ORDERED: SOD CHL 0.45% 1,000 ML IV SCH (13:15)
[2024-05-08] MEDS: amLODIPine BESYLATE 5 MG TAB PO SCH (13:15)
[2024-05-08] MEDS: MUPIROCIN 2% OINT 15gm or 22gm FOR MRSA NARES EACHNOSTRI SCH (21:19)
[2024-05-09] VITALS (15 sets, daily range): BP systolic 103–162; BP diastolic 63–93; PULSE 66–101; RESP 14–22; TEMP 97.8–98.9; O2SAT 94–98
[2024-05-09] MEDS: PROCHLORPERAZINE MALEATE 10 MG TAB PO PRN ×2 (05:43→18:27)
[2024-05-09 09:38] LABS: Basophils # (auto) 0 10 ^3/uL (0-0.2); Basophils % (auto) 0.3 % (0.0-2.0); Eosinophils # (auto) 0.1 10 ^3/uL (0-0.8); Eosinophils % (auto) 0.8 % (0.0-7.0); Hematocrit 29.3 % (41.0-53.0); Hemoglobin 10.1 g/dL (13.5-17.5); Lymphocytes # (auto) 0.4 10 ^3/uL (0.4-5.4); Lymphocytes % (auto) 6.1 % (10.0-50.0); Mean Corpuscular Hemoglobin 31.3 pg (28.0-32.0); Mean Corpuscular Hgb Conc. 34.3 g/dL (32.0-36.0); Mean Corpuscular Volume 91.2 fL (80.0-100.0); Monocytes # (auto) 0.5 10 ^3/uL (0-1.3); Monocytes % (auto) 7.9 % (0.0-12.0); Neutrophils # (auto) 5.3 10 ^3/uL (1.6-8.6); Neutrophils % (auto) 84.9 % (37.0-80.0); Nucleated Red Blood Cells % 0.1 %; Platelet Count (auto) 98 10^3/uL (140-450); Red Blood Cells 3.21 10^6/uL (4.5-5.90); Red Cell Distribution Width 14.8 % (11.8-14.3); White Blood Cell 6.2 10^3/uL (4.4-10.8)
[2024-05-09 09:46] LABS: Chloride 109 mmol/L (98-107); Potassium 3.9 mmol/L (3.5-5.1); Sodium 144 mmol/L (136-145)
[2024-05-09 09:47] LABS: Anion Gap 7 (5-15); Carbon Dioxide 28 mmol/L (20-30)
[2024-05-09 09:48] LABS: Calcium 9.4 mg/dL (8.7-10.4)
[2024-05-09 09:52] LABS: Glucose 176 mg/dL (74-106)
[2024-05-09 09:53] LABS: BUN/Creatinine Ratio 25.3 (10.0-20.0)
[2024-05-09 09:57] LABS: Blood Urea Nitrogen 50 mg/dL (9-23)
[2024-05-09] MEDS: FERROUS SULFATE 325mg EC TAB PO SCH (10:19)
[2024-05-10] VITALS (23 sets, daily range): BP systolic 116–156; BP diastolic 65–94; PULSE 61–111; RESP 12–30; TEMP 98.1–98.8; O2SAT 95–99
[2024-05-10 05:24] LABS: Basophils # (auto) 0 10 ^3/uL (0-0.2); Basophils % (auto) 0.3 % (0.0-2.0); Eosinophils # (auto) 0.1 10 ^3/uL (0-0.8); Hematocrit 28.3 % (41.0-53.0); Hemoglobin 9.8 g/dL (13.5-17.5); Lymphocytes # (auto) 0.6 10 ^3/uL (0.4-5.4); Lymphocytes % (auto) 12.5 % (10.0-50.0); Mean Corpuscular Hemoglobin 31.4 pg (28.0-32.0); Mean Corpuscular Hgb Conc. 34.6 g/dL (32.0-36.0); Mean Corpuscular Volume 90.9 fL (80.0-100.0); Monocytes # (auto) 0.6 10 ^3/uL (0-1.3); Monocytes % (auto) 11.6 % (0.0-12.0); Neutrophils # (auto) 3.5 10 ^3/uL (1.6-8.6); Neutrophils % (auto) 73.6 % (37.0-80.0); Nucleated Red Blood Cells % 0.1 %; Platelet Count (auto) 98 10^3/uL (140-450); Red Blood Cells 3.11 10^6/uL (4.5-5.90); Red Cell Distribution Width 14.9 % (11.8-14.3); White Blood Cell 4.8 10^3/uL (4.4-10.8)
[2024-05-10 06:03] LABS: Anion Gap 4 (5-15); Carbon Dioxide 30 mmol/L (20-30); Chloride 107 mmol/L (98-107); Potassium 4.3 mmol/L (3.5-5.1); Sodium 141 mmol/L (136-145)
[2024-05-10 06:05] LABS: Calcium 9.5 mg/dL (8.7-10.4)
[2024-05-10 06:09] LABS: Glucose 119 mg/dL (74-106)
[2024-05-10 06:33] LABS: Blood Urea Nitrogen 37 mg/dL (9-23)
[2024-05-10] MEDS: Ensure HIGH Protein Chocolate 8oz Bottle PO SCH (19:00)
[2024-05-11] VITALS (8 sets, daily range): BP systolic 102–155; BP diastolic 64–94; PULSE 83–104; RESP 14–20; TEMP 98.3–98.6; O2SAT 97–98
[2024-05-11 06:34] LABS: Basophils # (auto) 0 10 ^3/uL (0-0.2); Basophils % (auto) 0.3 % (0.0-2.0); Eosinophils # (auto) 0.1 10 ^3/uL (0-0.8); Eosinophils % (auto) 2.4 % (0.0-7.0); Hematocrit 30.3 % (41.0-53.0); Hemoglobin 10.7 g/dL (13.5-17.5); Lymphocytes # (auto) 0.7 10 ^3/uL (0.4-5.4); Lymphocytes % (auto) 14.4 % (10.0-50.0); Mean Corpuscular Hemoglobin 31.5 pg (28.0-32.0); Mean Corpuscular Hgb Conc. 35.2 g/dL (32.0-36.0); Mean Corpuscular Volume 89.5 fL (80.0-100.0); Monocytes # (auto) 0.5 10 ^3/uL (0-1.3); Neutrophils # (auto) 3.8 10 ^3/uL (1.6-8.6); Neutrophils % (auto) 73.9 % (37.0-80.0); Nucleated Red Blood Cells % 0.1 %; Platelet Count (auto) 108 10^3/uL (140-450); Red Blood Cells 3.38 10^6/uL (4.5-5.90); Red Cell Distribution Width 14.8 % (11.8-14.3); White Blood Cell 5.2 10^3/uL (4.4-10.8)
[2024-05-11 06:46] LABS: Calcium 9.6 mg/dL (8.7-10.4); Chloride 106 mmol/L (98-107); Potassium 4.1 mmol/L (3.5-5.1); Sodium 139 mmol/L (136-145)
[2024-05-11 06:47] LABS: Anion Gap 11 (5-15); Carbon Dioxide 22 mmol/L (20-30)
[2024-05-11 06:52] LABS: BUN/Creatinine Ratio 19.4 (10.0-20.0); Blood Urea Nitrogen 31 mg/dL (9-23); Glucose 110 mg/dL (74-106)
[2024-05-11 06:53] LABS: Magnesium 1.4 mg/dL (1.6-2.6)
[2024-05-11] MEDS: DOCUSATE SOD 100 MG CAP PO SCH (11:06)
[2024-05-11] MEDS ORDERED: PROC10TA6 GT (17:36)
[2024-05-11] MEDS: ONDANSETRON HCL 4 MG/2 ML VIAL IV PRN (19:52)
[2024-05-12] VITALS (8 sets, daily range): BP systolic 120–146; BP diastolic 7–81; PULSE 68–85; RESP 16–20; TEMP 97.9–98.6; O2SAT 95–97
[2024-05-12] MEDS: ENSURE CLEAR Mixed Berry 8oz Carton PO SCH (08:00)
[2024-05-12 10:06] LABS: PSA Free 0.05 ng/mL; Prostate Specific Antigen 0.2 ng/mL (0.0-4.0)
[2024-05-12] MEDS: PROCHLORPERAZINE MALEATE 10 MG TAB PO PRN (16:36)
[2024-05-13] VITALS (8 sets, daily range): BP systolic 121–145; BP diastolic 56–86; PULSE 74–83; RESP 16–18; TEMP 98.5–99.2; O2SAT 96–98
[2024-05-13] MEDS: PANTOPRAZOLE 40 MG/10 ML VIAL INJ IV SCH (09:23)
[2024-05-13 11:07] LABS: Chloride 106 mmol/L (98-107); Potassium 4.1 mmol/L (3.5-5.1); Sodium 135 mmol/L (136-145)
[2024-05-13 11:08] LABS: Anion Gap 6 (5-15); Calcium 9.5 mg/dL (8.7-10.4); Carbon Dioxide 23 mmol/L (20-30)
[2024-05-13 11:13] LABS: BUN/Creatinine Ratio 15.5 (10.0-20.0); Blood Urea Nitrogen 24 mg/dL (9-23); Glucose 123 mg/dL (74-106)
[2024-05-14] MEDS ORDERED: levoFLOXacin 250 MG TAB PO SCH (10:00)
== END 2024-05-13 23:20 | DRG 682 ==
LOC: ER 15:30 → EDBD 15:30 → OVERFLOW 21:11 → DOU IN ICU 05-07 20:00 → TELE-EAST 05-10 21:58
PROVIDERS: ADMIT Nurse Practitioner Family; ATTEND Nurse Practitioner Family
PROC: 30233N1 Transfusion of Nonautologous Red Blood Cells into Peripheral Vein, Percutaneous Approach (ICD-10-PCS; principal; 2024-05-06)
DX: N17.0 Acute kidney failure with tubular necrosis (principal); I21.A1 Myocardial infarction type 2; E87.0 Hyperosmolality and hypernatremia; E87.20 Acidosis, unspecified; I47.10 Supraventricular tachycardia, unspecified; N39.0 Urinary tract infection, site not specified; N18.4 Chronic kidney disease, stage 4 (severe); E87.5 Hyperkalemia; D63.1 Anemia in chronic kidney disease; D69.6 Thrombocytopenia, unspecified; J44.9 Chronic obstructive pulmonary disease, unspecified; I12.9 Hypertensive chronic kidney disease with stage 1 through stage 4 chronic kidney disease, or unspecified chronic kidney disease; Z79.899 Other long term (current) drug therapy
CPT/HCPCS: 36415; 36600; 71045; 76775; 80048; 80053; 80061; 81001; 82043; 82270; 82306; 82553; 82570; 82728; 82805; 83036; 83540; 83550; 83605; 83735; 83935; 84154; 84156; 84484; 85014; 85018; 85025; 85045; 86850; 86900; 86901; 86920; 87040; 87081; 87086; 93005; 93306; 94640; 97110; 97116; 97163; 97530; G0378; J2405; J2470; Q0164